=== PATIENT | female | born 1985 | race Caucasian/White ===

== ENCOUNTER 2019-09-27 12:12 | Emergency (ER) | payer OTHER ==
[~2019-09-27] VITALS: Ht 172.7 cm; Wt 72.6 kg
--- NOTE | 2019-09-27 12:50 | NUR ---
ED Nurse Note: Patient walked in to ER from home due to headache, dizziness, sorethroat, feeling weak, bodyache since last night. pt aao x4 and ambulatory. skin clean and intact. calm and cooperative. no acute cardiac or pulmonary distress noted at this moment.
[2019-09-27 12:58] VITALS: BP 123/80
[2019-09-27] MEDS ORDERED: AUGMENTIN 875-1 EAC1 ORAL (12:58)
--- NOTE | 2019-09-27 13:05 | Emergency Room Report ---
History of Present Illness General Chief Complaint: Flu Like Symptoms Source: Patient Present Illness HPI 34-year-old female with history of oral herpes complaining of fever and sore throat since yesterday morning. Patient denies cough, shortness of breath, chest pain headache, dizziness, vomiting, diarrhea or abdominal pain. No flu shot. Patient states that boyfriend recently treated for strep throat. NKDA Allergies: Coded Allergies: No Known Allergies (Unverified , 09/27/19) Patient History Past Medical History: other - herpes Past Surgical History: none Social History: Reports: alcohol use - occasional Now: No Nursing Documentation-[facility] Past Medical History: No History, Except For Hx Asthma: Yes Review of Systems All Other Systems: negative except mentioned in HPI Physical Exam Vital Signs Date Time Temp Pulse Resp B/P (MAP) Pulse Ox O2 Delivery O2 Flow Rate FiO2 09/27/19 12:45 100.0 112 18 123/80 (94) 99 Room Air Sp02 EP Interpretation: reviewed, normal General Appearance: no apparent distress, alert, GCS 15, non-toxic ENT: normal voice, TMs + canals normal, uvula midline, pharyngeal erythema Neck: other - tender cervical lymphadenopathy Respiratory: chest non-tender, lungs clear, normal breath sounds, speaking full sentences Cardiovascular #1: regular rate, rhythm, no edema Gastrointestinal: non tender, soft, no mass Musculoskeletal: normal inspection Neurologic: alert, motor strength/tone normal, oriented x3, sensory intact, responsive, speech normal Medical Decision Making PA Attestation This patient was seen under the direct supervision of Dr. Gunter, who directed all aspects of care and diagnostic interpretation. Diagnostic Impression: Primary Impression: Acute pharyngitis ER Course ED course HPI: 34-year-old female with history of oral herpes complaining of fever and sore throat since yesterday morning. Patient denies cough, shortness of breath, chest pain headache, dizziness, vomiting, diarrhea or abdominal pain. No flu shot. Patient states that boyfriend recently treated for strep throat. NKDA Ddx: Influenza, pharyngitis, URI HPI & PE consistent with: Pharyngitis Orders/ Interventions: None. Patient well-appearing, in no acute distress. Speaking full sentences without respiratory distress. No stridor. No evidence of peritonsillar abscess on physical exam. Disposition: Supportive care. Increase oral hydration and rest. Ibuprofen q6hr for pain and fever PRN. Prescription for Augmentin 875 mg twice daily x10 days given, start p.o. antibiotics if not improved in 2 days. At this time pt. is stable for d/c to home. Will provide printed patient care instructions, and any necessary prescriptions. Care plan and follow up instructions have been discussed with the patient prior to discharge. Please note that this Emergency Department Report was dictated using [employer] import specialist technology software, occasionally this can lead to erroneous entry secondary to interpretation by the dictation equipment. Last Vital Signs Date Time Temp Pulse Resp B/P (MAP) Pulse Ox O2 Delivery O2 Flow Rate FiO2 09/27/19 12:45 100.0 112 18 123/80 (94) 99 Room Air Disposition: HOME, SELF-CARE Condition: Stable Scripts Amoxicillin/Potassium Clav 875-125* (AUGMENTIN 875-125 TABLET*) 1 Each Tablet 1 TAB ORAL TWICE A DAY for 10 Days, #20 TAB Prov: Nancy Watters 09/27/19 Patient Instructions: Pharyngitis, [id number] Additional Instructions: Take medications as prescribed. Follow-up with primary care provider in 2 days or return to ER if worsening symptoms, new symptoms or sudden change in condition. Nancy Watters Sep 27, 2019 13:05
[2019-09-27 13:08] VITALS: BP 120/89
--- NOTE | 2019-09-27 13:09 | NUR ---
ED Nurse Note: Pt cleared by health care Provider for discharge. DC instructions/prescription was given and explained to pt and verbalized understanding of teachings. All medical deviecs such as ID band removed. Pt is AAO x4, ambulatory and left with all personal belongings.
== END 2019-09-27 13:25 | disposition home or self-care (01) ==
LOC: EMR 13:19
DX: J02.9 Acute pharyngitis, unspecified (principal)
CPT/HCPCS: 99282